=== PATIENT | male | born 1990 | race Caucasian/White ===

== ENCOUNTER 2023-02-21 09:07 | Inpatient (IN) | payer MEDICAID ==
[~2023-02-21] VITALS: Ht 170.2 cm; Wt 89.3 kg
[~2023-02-21 09:07] MED LIST: BENZ1TAB84 PO; DIVA-112 PO; HALO5TAB2 PO
[2023-02-21 09:28] LABS: BASOPHILS % (AUTO) 0.5 % (0.0-2.0); EOSINOPHILS % (AUTO) 0.7 % (1.0-6.0); HEMATOCRIT 42.1 % (41-53); HEMOGLOBIN 14.8 g/dL (13.5-17.5); LYMPHOCYTES % (AUTO) 18.3 % (22.0-44.0); MEAN CORPUSCULAR HEMOGLOBIN 32.1 pg (26.0-34.0); MEAN CORPUSCULAR HGB CONC 35.2 G/dL (31.0-37.0); MEAN CORPUSCULAR VOLUME 91 fL (80-100); MONOCYTES # (AUTO) 0.8 K/uL (0.1-1.0); MONOCYTES % (AUTO) 7.9 % (2.0-9.0); NEUTROPHILS # (AUTO) 7.8 K/uL (1.8-7.7); NEUTROPHILS % (AUTO) 72.6 % (40.0-70.0); PLATELET COUNT (AUTO) 254 K/uL (150-450); WHITE BLOOD COUNT (AUTO) 10.7 K/uL (4.5-11.0)
[2023-02-21 09:36] LABS: ANION GAP 12 mmol/L (8-16); CALCIUM, TOTAL 9.1 mg/dL (8.8-10.5); CARBON DIOXIDE 26 mmol/L (22-29); CHLORIDE 104 mmol/L (98-107); CREATININE 0.75 mg/dL (0.60-1.30); GLOMERULAR FILTR. RATE CALC > 60 mL/min (>60); GLUCOSE,RANDOM 103 mg/dL (70-110); SODIUM SERUM 142 mmol/L (136-145); UREA NITROGEN, BLOOD 11 mg/dL (7-18)
[2023-02-21 09:41] LABS: ALANINE AMINOTRANSFERASE 63 U/L (12-78); ALBUMIN 4.2 g/dL (3.4-5.0); ALKALINE PHOSPHATASE 110 U/L (46-116); ASPARTATE AMINOTRANSFERASE 71 U/L (15-37); TOTAL PROTEIN, SERUM 7.6 g/dL (6.4-8.2)
[2023-02-21 09:51] LABS: ALCOHOL, BLOOD (SERUM) < 3 mg/dL (0-10)
[2023-02-21] MEDS ORDERED: ZOLPIDEM TARTRATE 10 MG TABLET PO PRN (10:45)
[2023-02-21 11:19] LABS: COVID AG,FIA SOURCE NASAL SWAB
[2023-02-21 11:44] LABS: SARS-COV2 (COVID) ANTIGEN,FIA Negative (Negative)
[2023-02-21 12:18] LABS: PH,URINE DRUG SCREEN 5.5 (5.0-8.0)
[2023-02-21 12:19] LABS: APPEARANCE,URINE CLEAR (CLEAR); BILIRUBIN,URINE NEGATIVE (NEGATIVE); COLOR,URINE YELLOW (YELLOW); GLUCOSE, URINE (UA) NEGATIVE (NEGATIVE); LEUKOCYTE ESTERASE ,URINE NEGATIVE (NEGATIVE); NITRATE,URINE NEGATIVE (NEGATIVE); OCCULT BLOOD,URINE NEGATIVE (NEGATIVE); PH,URINE 5.5 (5.0-8.0); SPECIFIC GRAVITIY, URINE 1.022 (1.003-1.030); UROBILINOGEN,URINE <=1.0 mg/dL (<=1.0)
[2023-02-21 12:21] LABS: PROTEIN,URINE NEGATIVE (NEGATIVE)
[2023-02-21 12:25] LABS: ALCOHOL, URINE DRUG SCREEN NEGATIVE (NEGATIVE); AMPHET/METH SCREEN,URINE NEGATIVE (NEGATIVE); BARBITURATE SCREEN, URINE NEGATIVE (NEGATIVE); BENZODIAZEPINES SCREEN,URINE NEGATIVE (NEGATIVE); CANNABINOID SCREEN,URINE NEGATIVE (NEGATIVE); COCAINE SCREEN,URINE NEGATIVE (NEGATIVE); METHADONE SCREEN, URINE NEGATIVE (NEGATIVE); OPIATE SCREEN,URINE NEGATIVE (NEGATIVE); PHENCYCLIDINE SCREEN,URINE NEGATIVE (NEGATIVE)
[2023-02-21] MEDS ORDERED: INFLUENZA VIRUS VACCINE QVS 2023-24 (6MO+)/PF 60 MCG/0.5 ML SYRINGE IM. ONE (15:15)
[2023-02-21 15:46] VITALS: BP 109/87; PULSE 93; RESP 18; TEMP 99; O2SAT 99
[2023-02-21] MEDS: LORazepam 2 MG TABLET PO PRN (16:15)
[2023-02-21] MEDS: QUEtiapine FUMARATE 100 MG TABLET PO PRN (16:15)
[2023-02-21 23:01] VITALS: RESP 18
[2023-02-22] MEDS: LORazepam 2 MG TABLET PO PRN (08:17)
[2023-02-22] MEDS: QUEtiapine FUMARATE 100 MG TABLET PO PRN (08:17)
[2023-02-22 08:34] VITALS: BP 125/67; PULSE 93; RESP 18; TEMP 97.7; O2SAT 98
[2023-02-22] MEDS: HALOPERIDOL 5 MG TABLET PO SCH ×2 (12:35→20:39)
[2023-02-22] MEDS: BENZTROPINE MESYLATE 1 MG TABLET PO SCH ×2 (12:35→20:39)
[2023-02-22] MEDS ORDERED: ONDANSETRON HCL 4 MG TABLET PO PRN (13:45)
[2023-02-22] MEDS ORDERED: GuaiFENesin/D-METHORPHAN [SUGAR-FREE] 200-20MG/10 ML SYRUP UDCUP PO PRN (13:45)
[2023-02-22] MEDS ORDERED: IBUPROFEN 400 MG TABLET PO PRN (13:45)
[2023-02-22] MEDS ORDERED: MAG HYDROX/ALUMINUM HYD/SIMETH ES 30 ML SUSPENSION UDCUP PO PRN (13:45)
[2023-02-22] MEDS ORDERED: ALBUTEROL SULFATE HFA 90 MCG/PUFF 8 GM INHALER IH PRN (13:45)
[2023-02-22] MEDS ORDERED: CloNIDine HCL 0.1 MG TABLET PO PRN (13:45)
[2023-02-22] MEDS ORDERED: DOCUSATE SODIUM 100 MG CAPSULE PO PRN (13:45)
[2023-02-22] MEDS ORDERED: ACETAMINOPHEN 325 MG TABLET PO PRN (13:45)
[2023-02-22] MEDS ORDERED: MAGNESIUM HYDROXIDE SUSPENSION 30 ML UDCUP PO PRN (13:45)
[2023-02-22] MEDS ORDERED: PETROLATUM,WHITE 28 GM JELLY TP PRN (13:45)
[2023-02-22] MEDS ORDERED: NICOTINE 14 MG/24 HOUR PATCH TD PRN (13:45)
[2023-02-22] MEDS ORDERED: LOPERAMIDE HCL 2 MG CAPSULE PO PRN (13:45)
[2023-02-22] MEDS: DIVALPROEX SODIUM 500 MG DR TABLET PO SCH (20:39)
[2023-02-22 21:11] VITALS: BP 116/75; PULSE 80; RESP 18; TEMP 97.8
[2023-02-23 09:08] LABS: HEMOGLOBIN A1C 5.1 % (3.8-5.6)
[2023-02-23] MEDS: HALOPERIDOL 5 MG TABLET PO SCH ×2 (09:13→20:29)
[2023-02-23] MEDS: BENZTROPINE MESYLATE 1 MG TABLET PO SCH ×2 (09:13→20:29)
[2023-02-23] MEDS: DIVALPROEX SODIUM 500 MG DR TABLET PO SCH ×2 (09:13→20:29)
[2023-02-23] MEDS: AmLODIPine BESYLATE 5 MG TABLET PO SCH (09:13)
[2023-02-23 09:45] LABS: CHOL/HDL RATIO 4.6 (4.2-7.3); THYROID STIMULATING HORMONE 2.07 uIU/mL (0.36-3.74)
[2023-02-23 10:43] VITALS: BP 139/99; PULSE 90; RESP 18; TEMP 97.5; O2SAT 98
[2023-02-23 20:11] VITALS: BP 135/92; PULSE 91; RESP 18; TEMP 98.1; O2SAT 99
[2023-02-24] MEDS: LORazepam 2 MG TABLET PO PRN (05:57)
[2023-02-24 08:08] VITALS: BP 112/75; PULSE 90; RESP 16; TEMP 97; O2SAT 98
[2023-02-24] MEDS: DIVALPROEX SODIUM 500 MG DR TABLET PO SCH (08:20)
[2023-02-24] MEDS: HALOPERIDOL 5 MG TABLET PO SCH (08:20)
[2023-02-24] MEDS: BENZTROPINE MESYLATE 1 MG TABLET PO SCH (08:20)
[2023-02-24] MEDS: AmLODIPine BESYLATE 5 MG TABLET PO SCH (08:20)
[2023-02-24] MEDS ORDERED: AMLO-257 PO (11:42)
[2023-02-24] MEDS ORDERED: DIVA-112 PO (11:42)
[2023-02-24] MEDS ORDERED: BENZ1TAB84 PO (11:42)
== END 2023-02-24 13:30 | disposition home or self-care (01) | DRG 750 ==
LOC: EMS 09:07 → B2S 11:36
PROVIDERS: ADMIT Psychiatry & Neurology Psychiatry; ATTEND Psychiatry & Neurology Psychiatry
PROC: GZHZZZZ Group Psychotherapy (ICD-10-PCS; principal; 2023-02-23)
DX: F20.0 Paranoid schizophrenia (principal); R45.851 Suicidal ideations; I10 Essential (primary) hypertension; F17.210 Nicotine dependence, cigarettes, uncomplicated; Z20.822 Contact with and (suspected) exposure to COVID-19; F41.9 Anxiety disorder, unspecified; G47.00 Insomnia, unspecified; Z59.00 Homelessness unspecified; Z79.899 Other long term (current) drug therapy
CPT/HCPCS: 80053; 80061; 80307; 81003; 83036; 84443; 85025; 99285; G0480